=== PATIENT | female | born 1950 | race Caucasian/White ===

== ENCOUNTER 2024-01-01 12:26 | Inpatient (IN) | payer MEDICARE ==
[2024-01-01] VITALS (15 sets, daily range): BP systolic 83–156; BP diastolic 49–88; PULSE 97–110; RESP 15–30; TEMP 98.1–98.3; O2SAT 79–100
[~2024-01-01] VITALS: Ht 172.7 cm; Wt 104.3 kg
[~2024-01-01 12:26] MED LIST: ALENDRONATE SOD10 MG PO; AMLODIPINE BESYL5 MG PO; ASPIRIN81 MG PO; BENZONATATE200 MG PO; BREO ELLIPTA 21 EACH INH; CEPHALEXIN500 MG PO; CLOPIDOGREL75 MG PO; ELIQUIS5 MG PO; IMITREX100 MG PO; LIOTHYRONINE SO5 MCG PO; LIPITOR20 MG PO; LOSARTAN POTASS25 MG PO; MECLIZINE HCL12.5 MG PO; METFORMIN HCL500 MG PO; METOPROLOL SUCC50 MG PO; OMEPRAZOLE40 MG PO; PREDNISONE20 MG PO; PROVENTIL HFA6.7 GM INH; SERTRALINE HCL50 MG PO; ZITHROMAX500 MG PO
[2024-01-01] MEDS ORDERED: SODIUM CHLORIDE FLUSH 10 ML SYR IV PRN (13:00)
[2024-01-01 13:21] LABS: BASOPHILS % 0.7 % (0.0-1.0); EOSINOPHILS # (AUTO) 0.1 (0.0-0.4); EOSINOPHILS % 1.9 % (0.0-6.0); HEMATOCRIT 29.3 % (34.2-44.1); HEMOGLOBIN 7.6 g/dL (12.0-16.0); LYMPHOCYTES # (AUTO) 1.3 (1.0-3.2); LYMPHOCYTES % 23.5 % (18.0-39.1); MEAN CORPUSCULAR HEMOGLOBIN 17.9 pg (28-32); MEAN CORPUSCULAR HGB CONC 25.9 g/dL (31-35); MEAN CORPUSCULAR VOLUME 69.1 fL (81-99); MONOCYTES # (AUTO) 0.4 (0.2-0.8); MONOCYTES % 7.4 % (4.4-11.3); NEUTROPHILS # (AUTO) 3.7 (2.1-6.9); NEUTROPHILS % 66.1 % (38.7-80.0); PLATELET COUNT 357 x10e3/uL (140-360); RED BLOOD COUNT 4.24 x10e6/uL (3.6-5.1); RED CELL DISTRIBUTION WIDTH 18.6 % (11.7-14.4); WHITE BLOOD COUNT 5.66 x10e3/uL (4.8-10.8)
[2024-01-01 13:31] LABS: INR 0.91; PARTIAL THROMBOPLASTIN TIME 22.9 seconds (23.8-35.5); PROTHROMBIN TIME 12.9 seconds (11.9-14.5)
[2024-01-01] MEDS: ALBUTEROL/IPRATROPIUM 3 ML NEB NEB ONE (13:32)
[2024-01-01 13:40] LABS: ALANINE AMINOTRANSFERASE 16 IU/L (0-55); ALBUMIN/GLOBULIN RATIO 1.4 (0.8-2.0); ALKALINE PHOSPHATASE 52 IU/L (40-150); ANION GAP 16.1 mmol/L (8-16); BLOOD UREA NITROGEN 14 mg/dL (7-26); BUN/CREATININE RATIO 15 (6-25); CALCIUM 9.8 mg/dL (8.4-10.2); CARBON DIOXIDE 25 mmol/L (22-29); CHLORIDE 103 mmol/L (98-107); CREATININE, SERUM 0.96 mg/dL (0.57-1.11); EST GLOMERULAR FILTRATION RATE 62 ML/MIN (>=60); GLUCOSE 120 mg/dL (74-118); POTASSIUM 4.1 mmol/L (3.5-5.1); SODIUM 140 mmol/L (136-145); TOTAL PROTEIN 6.8 g/dL (6.5-8.1)
[2024-01-01] MEDS ORDERED: IOPAMIDOL 370 MG/ML 100 ML INFUS..BTL INJ ONE (13:46)
[2024-01-01 13:47] LABS: TROPONIN I < 0.001 ng/mL (0-0.300)
[2024-01-01 13:56] LABS: BILIRUBIN,TOTAL 0.9 mg/dL (0.2-1.2)
[2024-01-01 14:27] LABS: MICROCYTOSIS MODERATE; PLATELET ESTIMATE ADEQUATE; PLATELET MORPHOLOGY COMMENT NORMAL; RBC MORPHOLOGY COMMENT ABNORMAL
[2024-01-01 14:37] LABS: POLYCHROMASIA FEW
[2024-01-01 14:38] LABS: HYPOCHROMASIA MODERATE
[2024-01-01] MEDS: METHYLPREDNISOLONE SOD SUCC 125 MG/2ML VIAL IV ONE (14:47)
[2024-01-01] MEDS: SODIUM CHLORIDE 0.9% 1000ML 1,000 ML IV ONE (14:47)
[2024-01-01] MEDS: LEVOFLOXACIN 750MG/D5W 150ML 150 ML IV SCH (14:48)
[2024-01-01 15:26] LABS: CLARITY,URINE CLEAR (CLEAR); COLOR,URINE YELLOW (YELLOW); PH,URINE 5.5 (5 - 7)
[2024-01-01 15:27] LABS: BACTERIA,URINE FEW /HPF; BILIRUBIN,URINE NEGATIVE (NEGATIVE); EPITHELIAL CELLS,URINE FEW /LPF; GLUCOSE, URINE NEGATIVE (NEGATIVE); KETONES,URINE TRACE (NEGATIVE); LEUKOCYTE ESTERASE ,URINE NEGATIVE (NEGATIVE); MUCUS,URINE MODERATE (RARE); NITRITE,URINE NEGATIVE (NEGATIVE); PROTEIN,URINE DIPSTICK NEGATIVE (NEGATIVE); RBC,URINE 0-5 /HPF (0-5); URINE UROBILINOGEN 0.2 mg/dL (0.2 - 1); WBC,URINE (MAN) 0-5 /HPF (0-5)
[2024-01-01] MEDS ORDERED: METHYLPREDNISOLONE SOD SUCC 125 MG/2ML VIAL IV ONE (16:00)
[2024-01-01] MEDS ORDERED: ALBUTEROL/IPRATROPIUM 3 ML NEB NEB PRN (16:00)
[2024-01-01] MEDS ORDERED: SODIUM CHLORIDE FLUSH 10 ML SYR INJ PRN (16:00)
[2024-01-01] MEDS ORDERED: ONDANSETRON HCL INJ 2MG/ML 2ML 2 MG/ML VIAL IV PRN (16:00)
[2024-01-01 17:40] LABS: FERRITIN 5.68 ng/mL (4.63-204.00)
[2024-01-02] VITALS (12 sets, daily range): BP systolic 128–158; BP diastolic 76–106; PULSE 69–119; RESP 18–24; TEMP 97.8–98.3; O2SAT 95–100
[2024-01-02] MEDS ORDERED: MELATONIN 5 MG TABLET PO PRN
[2024-01-02] MEDS ORDERED: DOCUSATE SODIUM 100 MG CAP PO PRN
[2024-01-02] MEDS ORDERED: ALBUTEROL/IPRATROPIUM 3 ML NEB NEB PRN
[2024-01-02] MEDS ORDERED: ACETAMINOPHEN 325 MG TAB PO PRN
[2024-01-02] MEDS ORDERED: DEXTROSE 50% SYRINGE 50 ML IV PRN
[2024-01-02] MEDS ORDERED: DIPHENHYDRAMINE HCL 25 MG CAP PO PRN
[2024-01-02] MEDS ORDERED: SIMETHICONE 80 MG CHEW PO PRN
[2024-01-02] MEDS ORDERED: CHLORASEPTIC SPRAY 177 ML BTL MM PRN
[2024-01-02] MEDS ORDERED: LIDOCAINE 4% PATCH TP PRN
[2024-01-02] MEDS: CYANOCOBALAMIN INJ 1,000 MCG/ML VIAL IM ONE (00:44)
[2024-01-02 06:52] LABS: BASOPHILS % 0.1 % (0.0-1.0); HEMATOCRIT 29.4 % (34.2-44.1); HEMOGLOBIN 7.6 g/dL (12.0-16.0); LYMPHOCYTES # (AUTO) 1.4 (1.0-3.2); LYMPHOCYTES % 15.8 % (18.0-39.1); MEAN CORPUSCULAR HEMOGLOBIN 18.1 pg (28-32); MEAN CORPUSCULAR HGB CONC 25.9 g/dL (31-35); MEAN CORPUSCULAR VOLUME 69.8 fL (81-99); MONOCYTES # (AUTO) 0.5 (0.2-0.8); MONOCYTES % 5.5 % (4.4-11.3); NEUTROPHILS # (AUTO) 6.6 (2.1-6.9); PLATELET COUNT 352 x10e3/uL (140-360); RED BLOOD COUNT 4.21 x10e6/uL (3.6-5.1); RED CELL DISTRIBUTION WIDTH 18.8 % (11.7-14.4); WHITE BLOOD COUNT 8.52 x10e3/uL (4.8-10.8)
[2024-01-02 07:17] LABS: ALBUMIN 4.1 g/dL (3.5-5.0); ALBUMIN/GLOBULIN RATIO 1.5 (0.8-2.0); BILIRUBIN,TOTAL 0.8 mg/dL (0.2-1.2); CALCIUM 10.1 mg/dL (8.4-10.2); CREATININE, SERUM 0.87 mg/dL (0.57-1.11); TOTAL PROTEIN 6.9 g/dL (6.5-8.1)
[2024-01-02] MEDS: SODIUM CHLORIDE 0.9% 500ML 500 ML IV ONE (08:45)
[2024-01-02] MEDS: METHYLPREDNISOLONE SOD SUCC 40 MG/ML VIAL 1ML IV SCH (08:46)
[2024-01-02] MEDS: CYANOCOBALAMIN INJ 1,000 MCG/ML VIAL IM SCH (08:46)
[2024-01-02] MEDS ORDERED: SODIUM FERRIC GLUCONATE COMPLX 125 MG in SODIUM CHLORIDE 0.9% 100 ML IV SCH (09:00)
[2024-01-02] MEDS: SODIUM FERRIC GLUCONATE COMPLX 125 MG in SODIUM CHLORIDE 0.9% 100 ML IV SCH (10:47)
[2024-01-02 12:52] LABS: PLATELET ESTIMATE ADEQUATE
[2024-01-02 12:54] LABS: POLYCHROMASIA FEW; RBC MORPHOLOGY COMMENT ABNORMAL
[2024-01-02 12:55] LABS: HYPOCHROMASIA MODERATE
[2024-01-02 12:56] LABS: ANISOCYTOSIS MODERATE; MICROCYTOSIS SLIG; PLATELET MORPHOLOGY COMMENT FEW LARGE
[2024-01-02] MEDS: AMIODARONE HCL 150 MG/100 ML BAG IV ONE (12:56)
[2024-01-02] MEDS: AMIODARONE 900MG 500 ML IV SCH (12:57)
[2024-01-02] MEDS ORDERED: METHYLPREDNISOLONE SOD SUCC 125 MG/2ML VIAL IV SCH (16:00)
[2024-01-02] MEDS: LEVOFLOXACIN 750MG/D5W 150ML 150 ML IV SCH (17:01)
[2024-01-03] VITALS (37 sets, daily range): BP systolic 105–156; BP diastolic 46–107; PULSE 60–114; RESP 13–32; TEMP 97.9–98.8; O2SAT 84–100
[2024-01-03 05:48] LABS: BASOPHILS % 0.1 % (0.0-1.0); HEMATOCRIT 24.7 % (34.2-44.1); LYMPHOCYTES # (AUTO) 0.9 (1.0-3.2); LYMPHOCYTES % 7.1 % (18.0-39.1); MEAN CORPUSCULAR HEMOGLOBIN 18.2 pg (28-32); MEAN CORPUSCULAR HGB CONC 26.3 g/dL (31-35); MONOCYTES # (AUTO) 0.5 (0.2-0.8); MONOCYTES % 3.5 % (4.4-11.3); NEUTROPHILS # (AUTO) 11.4 (2.1-6.9); NEUTROPHILS % 87.8 % (38.7-80.0); PLATELET COUNT 349 x10e3/uL (140-360); RED BLOOD COUNT 3.58 x10e6/uL (3.6-5.1); RED CELL DISTRIBUTION WIDTH 18.5 % (11.7-14.4)
[2024-01-03 05:50] LABS: WHITE BLOOD COUNT 12.97 x10e3/uL (4.8-10.8)
[2024-01-03 05:51] LABS: HEMOGLOBIN 6.5 g/dL (12.0-16.0)
[2024-01-03 06:05] LABS: ANION GAP 13.4 mmol/L (8-16); CREATININE, SERUM 0.9 mg/dL (0.57-1.11); POTASSIUM 4.4 mmol/L (3.5-5.1)
[2024-01-03 08:44] LABS: LYMPHOCYTES % (MANUAL) 6 % (19-48); MONOCYTES % (MANUAL) 3 % (3.4-9.0); NEUTROPHILS % (MANUAL) 91 % (40-74); NUCLEATED RED BLOOD CELLS 2; PLATELET ESTIMATE ADEQUATE; PLATELET MORPHOLOGY COMMENT NORMAL; RBC MORPHOLOGY COMMENT ABNORMAL
[2024-01-03 08:45] LABS: ANISOCYTOSIS MODERATE; HYPOCHROMASIA MODERATE; MICROCYTOSIS MODERATE; OVALOCYTES FEW
[2024-01-03] MEDS: SODIUM CHLORIDE 0.9% 250ML 250 ML IV ONE (08:47)
[2024-01-03 15:51] LABS: BASOPHILS % 0.1 % (0.0-1.0); HEMATOCRIT 28.9 % (34.2-44.1); LYMPHOCYTES # (AUTO) 0.9 (1.0-3.2); MEAN CORPUSCULAR HEMOGLOBIN 19.8 pg (28-32); MEAN CORPUSCULAR HGB CONC 27.7 g/dL (31-35); MEAN CORPUSCULAR VOLUME 71.5 fL (81-99); MONOCYTES # (AUTO) 0.7 (0.2-0.8); MONOCYTES % 4.6 % (4.4-11.3); NEUTROPHILS % 87.3 % (38.7-80.0); PLATELET COUNT 370 x10e3/uL (140-360); RED BLOOD COUNT 4.04 x10e6/uL (3.6-5.1); RED CELL DISTRIBUTION WIDTH 20.8 % (11.7-14.4); WHITE BLOOD COUNT 14.92 x10e3/uL (4.8-10.8)
[2024-01-03] MEDS: METOPROLOL TARTRATE 25 MG TAB PO SCH (20:30)
[2024-01-04] VITALS (24 sets, daily range): BP systolic 88–154; BP diastolic 46–130; PULSE 81–103; RESP 15–23; TEMP 97.6; O2SAT 86–100
[2024-01-04 06:53] LABS: BASOPHILS % 0.1 % (0.0-1.0); HEMATOCRIT 29.5 % (34.2-44.1); LYMPHOCYTES # (AUTO) 1.3 (1.0-3.2); LYMPHOCYTES % 9.4 % (18.0-39.1); MEAN CORPUSCULAR HEMOGLOBIN 19.7 pg (28-32); MEAN CORPUSCULAR HGB CONC 27.1 g/dL (31-35); MEAN CORPUSCULAR VOLUME 72.5 fL (81-99); MONOCYTES # (AUTO) 0.7 (0.2-0.8); MONOCYTES % 4.6 % (4.4-11.3); NEUTROPHILS # (AUTO) 11.8 (2.1-6.9); NEUTROPHILS % 82.8 % (38.7-80.0); PLATELET COUNT 307 x10e3/uL (140-360); RED BLOOD COUNT 4.07 x10e6/uL (3.6-5.1); RED CELL DISTRIBUTION WIDTH 21.2 % (11.7-14.4); WHITE BLOOD COUNT 14.22 x10e3/uL (4.8-10.8)
[2024-01-04 06:54] LABS: ANION GAP 14.4 mmol/L (8-16); CREATININE, SERUM 0.91 mg/dL (0.57-1.11); POTASSIUM 4.4 mmol/L (3.5-5.1)
[2024-01-04 08:14] LABS: ANISOCYTOSIS MARKED; HYPOCHROMASIA MODERATE; MICROCYTOSIS MODERATE; OVALOCYTES FEW; PLATELET ESTIMATE ADEQUATE; PLATELET MORPHOLOGY COMMENT NORMAL; RBC MORPHOLOGY COMMENT ABNORMAL
[2024-01-04 08:15] LABS: POLYCHROMASIA FEW
[2024-01-04] MEDS: AMIODARONE HCL 200 MG TAB PO SCH (09:00)
[2024-01-04] MEDS ORDERED: FENTANYL CITRATE/PF 100MCG/2 ML INJ ONE (09:44)
[2024-01-04] MEDS ORDERED: LIDOCAINE HCL 2% LOCAL INJ 5 ML SDV VIAL INJ ONE (13:30)
[2024-01-04] MEDS ORDERED: PROPOFOL IV EMULSION 10 MG/ML 20 ML VIAL ONE (13:30)
[2024-01-04] MEDS ORDERED: ALBUTEROL 90 MCG/ACT INHALER INH ONE (13:30)
[2024-01-04] MEDS ORDERED: BENZOCAINE/TETRACAINE/BUTAMBEN AERO SPRAY 56 GM CAN ONE (16:03)
[2024-01-04] MEDS: ALBUTEROL/IPRATROPIUM 3 ML NEB ONE (19:39)
[2024-01-05] VITALS (20 sets, daily range): BP systolic 109–133; BP diastolic 46–98; PULSE 73–96; RESP 12–20; TEMP 97–98.7; O2SAT 95–100
[2024-01-05 06:19] LABS: BASOPHILS % 0.1 % (0.0-1.0); EOSINOPHILS % 0.4 % (0.0-6.0); HEMATOCRIT 28.4 % (34.2-44.1); LYMPHOCYTES # (AUTO) 1.7 (1.0-3.2); LYMPHOCYTES % 16.5 % (18.0-39.1); MEAN CORPUSCULAR HEMOGLOBIN 19.7 pg (28-32); MEAN CORPUSCULAR HGB CONC 27.1 g/dL (31-35); MEAN CORPUSCULAR VOLUME 72.8 fL (81-99); MONOCYTES # (AUTO) 0.9 (0.2-0.8); MONOCYTES % 8.5 % (4.4-11.3); NEUTROPHILS % 70.2 % (38.7-80.0); PLATELET COUNT 321 x10e3/uL (140-360); RED CELL DISTRIBUTION WIDTH 22.4 % (11.7-14.4); WHITE BLOOD COUNT 9.98 x10e3/uL (4.8-10.8)
[2024-01-05 06:20] LABS: HEMOGLOBIN 7.7 g/dL (12.0-16.0)
[2024-01-05 06:49] LABS: CALCIUM 8.9 mg/dL (8.4-10.2); CREATININE, SERUM 0.87 mg/dL (0.57-1.11)
[2024-01-05] MEDS: PANTOPRAZOLE SOD 40 MG TABEC PO SCH (08:18)
[2024-01-05] MEDS: METHYLPREDNISOLONE SOD SUCC 40 MG/ML VIAL 1ML IV SCH (08:19)
[2024-01-05] MEDS: SODIUM CHLORIDE 0.9% 250ML 250 ML ONE (09:50)
[2024-01-05] MEDS: BENZONATATE 100 MG CAP PO PRN (11:12)
[2024-01-05] MEDS: SODIUM CHLORIDE 0.9% 250ML 250 ML IV ONE (21:00)
[2024-01-05] MEDS: HYDRALAZINE HCL 20 MG/ML VIAL IV PRN (22:50)
[2024-01-06 03:29] VITALS: BP 145/90; PULSE 91; RESP 18; TEMP 97.1; O2SAT 99
[2024-01-06 07:10] VITALS: PULSE 96; RESP 18; O2SAT 94
[2024-01-06 07:22] LABS: ENDOMYSIAL ANTIBODIES, IGA Negative (Negative)
[2024-01-06 07:48] VITALS: BP 134/83; PULSE 91; RESP 20; TEMP 97.9; O2SAT 96
[2024-01-06 07:49] LABS: IMMUNOGLOBULIN A 30 mg/dL (64-422); TISSUE TRANSGLUTAMINASE IGA AB <2 U/mL (0-3)
[2024-01-06 09:56] LABS: HEMATOCRIT 37.2 % (34.2-44.1); HEMOGLOBIN 10.8 g/dL (12.0-16.0)
[2024-01-06 10:21] LABS: ANION GAP 14.3 mmol/L (8-16); CREATININE, SERUM 0.84 mg/dL (0.57-1.11)
[2024-01-06 10:30] LABS: POTASSIUM 3.3 mmol/L (3.5-5.1)
[2024-01-06 12:43] VITALS: BP 130/74; PULSE 98; RESP 18; TEMP 98; O2SAT 98
[2024-01-06 15:48] VITALS: BP 116/90; PULSE 90; RESP 19; TEMP 99; O2SAT 96
[2024-01-06] MEDS: POTASSIUM CHLORIDE 20 MEQ TAB CR PO PRN (18:02)
[2024-01-07] MEDS ORDERED: PREDNISONE 20 MG TAB PO SCH (09:00)
== END 2024-01-06 18:42 | disposition home or self-care (01) | DRG 190 ==
LOC: ER 12:31 → ERHOLD 15:55 → ICU 17:35 → OBSVTOIN 01-03 09:03 → MED/SURG3 01-05 12:13
PROVIDERS: ADMIT Internal Medicine; ATTEND Internal Medicine
PROC: 02HV33Z Insertion of Infusion Device into Superior Vena Cava, Percutaneous Approach (ICD-10-PCS; 2024-01-02)
PROC: 30233N1 Transfusion of Nonautologous Red Blood Cells into Peripheral Vein, Percutaneous Approach (ICD-10-PCS; 2024-01-03)
PROC: 0DB78ZX Excision of Stomach, Pylorus, Via Natural or Artificial Opening Endoscopic, Diagnostic (ICD-10-PCS; 2024-01-04)
PROC: 0DB68ZX Excision of Stomach, Via Natural or Artificial Opening Endoscopic, Diagnostic (ICD-10-PCS; principal; 2024-01-04 16:09)
DX: J44.1 Chronic obstructive pulmonary disease with (acute) exacerbation (principal); J96.01 Acute respiratory failure with hypoxia; J45.901 Unspecified asthma with (acute) exacerbation; N39.0 Urinary tract infection, site not specified; I48.91 Unspecified atrial fibrillation; D50.9 Iron deficiency anemia, unspecified; K44.9 Diaphragmatic hernia without obstruction or gangrene; K29.70 Gastritis, unspecified, without bleeding; E03.9 Hypothyroidism, unspecified; E11.9 Type 2 diabetes mellitus without complications; E66.01 Morbid (severe) obesity due to excess calories; I10 Essential (primary) hypertension; I25.10 Atherosclerotic heart disease of native coronary artery without angina pectoris; Z68.35 Body mass index [BMI] 35.0-35.9, adult; K21.00 Gastro-esophageal reflux disease with esophagitis, without bleeding; E78.5 Hyperlipidemia, unspecified; Z11.52 Encounter for screening for COVID-19; F41.9 Anxiety disorder, unspecified; Z79.01 Long term (current) use of anticoagulants; Z79.02 Long term (current) use of antithrombotics/antiplatelets; Z79.82 Long term (current) use of aspirin; Z79.51 Long term (current) use of inhaled steroids; Z79.84 Long term (current) use of oral hypoglycemic drugs; Z95.810 Presence of automatic (implantable) cardiac defibrillator; Z86.73 Personal history of transient ischemic attack (TIA), and cerebral infarction without residual deficits; Z85.72 Personal history of non-Hodgkin lymphomas; Z88.2 Allergy status to sulfonamides; Z91.030 Bee allergy status; Z87.891 Personal history of nicotine dependence; I49.5 Sick sinus syndrome; E83.42 Hypomagnesemia
CPT/HCPCS: 36415; 36569; 43239; 71045; 71260; 80048; 80053; 81001; 82270; 82607; 82728; 82746; 82784; 82948; 83516; 83540; 83605; 83735; 83880; 84466; 84484; 85014; 85018; 85025; 85045; 85610; 85730; 86256; 86850; 86900; 86920; 87040; 87086; 87186; 87400; 88305; 88312; 88342; 93005; 93306; 94760; 94799; 99252; 99285; G0378; J0360; J0696; J2001; J2470; J2916; J2919; J3420; J7040; J7050; P9016; Q9967; U0002

== ENCOUNTER 2024-06-17 14:42 | Emergency (ER) | payer MEDICARE, OTHER ==
[~2024-06-17] VITALS: Ht 172.7 cm; Wt 108.0 kg
[2024-06-17 15:16] LABS: BASOPHILS % 0.6 % (0.0-1.0); EOSINOPHILS # (AUTO) 0.1 (0.0-0.4); EOSINOPHILS % 1.6 % (0.0-6.0); HEMATOCRIT 40.7 % (34.2-44.1); HEMOGLOBIN 11.9 g/dL (12.0-16.0); LYMPHOCYTES # (AUTO) 1.7 (1.0-3.2); LYMPHOCYTES % 25.8 % (18.0-39.1); MEAN CORPUSCULAR HEMOGLOBIN 24.9 pg (28-32); MEAN CORPUSCULAR HGB CONC 29.2 g/dL (31-35); MEAN CORPUSCULAR VOLUME 85.3 fL (81-99); MONOCYTES # (AUTO) 0.5 (0.2-0.8); MONOCYTES % 8.4 % (4.4-11.3); NEUTROPHILS # (AUTO) 4.1 (2.1-6.9); NEUTROPHILS % 63.3 % (38.7-80.0); PLATELET COUNT 296 x10e3/uL (140-360); RED BLOOD COUNT 4.77 x10e6/uL (3.6-5.1); RED CELL DISTRIBUTION WIDTH 15.7 % (11.7-14.4)
[2024-06-17 15:27] LABS: CORONAVIRUS COVID-19 AG NEGATIVE (NEGATIVE); INFLUENZA A AG NEGATIVE (NEGATIVE); INFLUENZA B AG NEGATIVE (NEGATIVE)
[2024-06-17 15:36] LABS: ALBUMIN 3.9 g/dL (3.5-5.0); ALBUMIN/GLOBULIN RATIO 1.4 (0.8-2.0); ANION GAP 19.2 mmol/L (8-16); BILIRUBIN,TOTAL 0.5 mg/dL (0.2-1.2); CREATININE, SERUM 0.94 mg/dL (0.57-1.11); POTASSIUM 4.2 mmol/L (3.5-5.1); TOTAL PROTEIN 6.6 g/dL (6.5-8.1)
[2024-06-17] MEDS ORDERED: IOPAMIDOL 370 MG/ML 100 ML INFUS..BTL INJ ONE (15:45)
[2024-06-17 16:36] VITALS: PULSE 93; RESP 19
[2024-06-17] MEDS ORDERED: LACTATED RINGER'S 1,000 ML INJ ONE (16:45)
[2024-06-17 16:46] VITALS: BP 142/86; PULSE 92; RESP 18; TEMP 98.2; O2SAT 96
== END 2024-06-17 16:47 | disposition home or self-care (01) ==
LOC: ER 14:50
DX: R06.00 Dyspnea, unspecified (principal); R07.89 Other chest pain; R06.02 Shortness of breath; F41.9 Anxiety disorder, unspecified; I10 Essential (primary) hypertension; I25.10 Atherosclerotic heart disease of native coronary artery without angina pectoris; J44.9 Chronic obstructive pulmonary disease, unspecified; I48.91 Unspecified atrial fibrillation; E78.5 Hyperlipidemia, unspecified; I50.9 Heart failure, unspecified; D64.9 Anemia, unspecified; Z11.52 Encounter for screening for COVID-19; Z86.73 Personal history of transient ischemic attack (TIA), and cerebral infarction without residual deficits; Z95.810 Presence of automatic (implantable) cardiac defibrillator
CPT/HCPCS: 36415; 71260; 80053; 83880; 84484; 85025; 87428; 93005; 99284; J7121; Q9967

== ENCOUNTER 2024-10-23 19:33 | Inpatient (IN) | payer MEDICARE, OTHER ==
[~2024-10-23] VITALS: Ht 172.7 cm; Wt 103.4 kg
[2024-10-23] MEDS: SODIUM CHLORIDE 0.9% 250ML 250 ML IV ONE (02:58)
[2024-10-23 19:33] VITALS: TEMP 98.2
[2024-10-23 20:19] LABS: BASOPHILS % 0.6 % (0.0-1.0); EOSINOPHILS # (AUTO) 0.1 (0.0-0.4); EOSINOPHILS % 2.2 % (0.0-6.0); HEMATOCRIT 26.9 % (34.2-44.1); LYMPHOCYTES # (AUTO) 1.4 (1.0-3.2); LYMPHOCYTES % 26.9 % (18.0-39.1); MEAN CORPUSCULAR HEMOGLOBIN 17.9 pg (28-32); MEAN CORPUSCULAR VOLUME 68.6 fL (81-99); MONOCYTES # (AUTO) 0.5 (0.2-0.8); MONOCYTES % 8.4 % (4.4-11.3); NEUTROPHILS # (AUTO) 3.3 (2.1-6.9); NEUTROPHILS % 61.5 % (38.7-80.0); PLATELET COUNT 325 x10e3/uL (140-360); RED BLOOD COUNT 3.92 x10e6/uL (3.6-5.1); RED CELL DISTRIBUTION WIDTH 18.2 % (11.7-14.4); WHITE BLOOD COUNT 5.35 x10e3/uL (4.8-10.8)
[2024-10-23 20:29] LABS: INR 0.94; PROTHROMBIN TIME 13.2 seconds (11.9-14.5)
[2024-10-23 20:30] LABS: PARTIAL THROMBOPLASTIN TIME 24.5 seconds (23.8-35.5)
[2024-10-23 20:38] LABS: ALBUMIN 3.8 g/dL (3.5-5.0); ALBUMIN/GLOBULIN RATIO 1.7 (0.8-2.0); ANION GAP 13.6 mmol/L (8-16); BILIRUBIN,TOTAL 0.7 mg/dL (0.2-1.2); CALCIUM 9.1 mg/dL (8.4-10.2); CREATININE, SERUM 0.98 mg/dL (0.57-1.11); POTASSIUM 3.6 mmol/L (3.5-5.1); TOTAL PROTEIN 6.1 g/dL (6.5-8.1)
[2024-10-23] MEDS: SODIUM CHLORIDE 0.9% 500ML 500 ML IV ONE (20:43)
[2024-10-23 20:51] LABS: INFLUENZA A AG NEGATIVE (NEGATIVE)
[2024-10-23 20:52] LABS: CORONAVIRUS COVID-19 AG NEGATIVE (NEGATIVE); INFLUENZA B AG NEGATIVE (NEGATIVE)
[2024-10-23 21:24] LABS: PLATELET ESTIMATE ADEQUATE; PLATELET MORPHOLOGY COMMENT NORMAL; RBC MORPHOLOGY COMMENT ABNORMAL
[2024-10-23 21:26] LABS: POLYCHROMASIA FEW
[2024-10-23 21:27] LABS: HYPOCHROMASIA MARKED
[2024-10-23 21:28] LABS: ANISOCYTOSIS SLIGHT; POIKILOCYTOSIS SLIGHT
[2024-10-23] MEDS ORDERED: ONDANSETRON HCL INJ 2MG/ML 2ML 2 MG/ML VIAL IV PRN (23:00)
[2024-10-23 23:25] LABS: BILIRUBIN,URINE SMALL (NEGATIVE); CLARITY,URINE CLEAR (CLEAR); COLOR,URINE YELLOW (YELLOW); GLUCOSE, URINE NEGATIVE (NEGATIVE); KETONES,URINE 1+ (NEGATIVE); LEUKOCYTE ESTERASE ,URINE NEGATIVE (NEGATIVE); NITRITE,URINE NEGATIVE (NEGATIVE); PH,URINE 5.5 (5 - 7); PROTEIN,URINE DIPSTICK TRACE (NEGATIVE); URINE UROBILINOGEN 1 mg/dL (0.2 - 1)
[2024-10-23] MEDS: SODIUM CHLORIDE 0.9% 1000ML 1,000 ML IV SCH (23:35)
[2024-10-23 23:38] LABS: RBC,URINE 0-5 /HPF (0-5)
[2024-10-23 23:39] LABS: BACTERIA,URINE MANY /HPF; EPITHELIAL CELLS,URINE MODERATE /LPF
[2024-10-24] VITALS (10 sets, daily range): BP systolic 109–135; BP diastolic 52–91; PULSE 87–110; RESP 16–20; TEMP 97.6–98.2; O2SAT 96–100
[2024-10-24 02:35] LABS: % IRON SATURATION 3 % (15-50); IRON 15 ug/dL (50-170); TOTAL IRON BINDING CAPACITY 448 ug/dL (261-478); TRANSFERRIN 320 mg/dL (180-382)
[2024-10-24] MEDS: SODIUM CHLORIDE 0.9% 250ML 250 ML ONE (09:13)
[2024-10-24] MEDS ORDERED: METOPROLOL TARTRATE INJ 1 MG/ML VIAL IV PRN (11:00)
[2024-10-24] MEDS ORDERED: IRON SUCROSE 100 MG in SODIUM CHLORIDE 0.9% 100 ML IV SCH (15:00)
[2024-10-24] MEDS: CYANOCOBALAMIN INJ 1,000 MCG/ML VIAL IM ONE (16:12)
[2024-10-24 17:01] LABS: BASOPHILS # (AUTO) 0.1 (0.0-0.1); BASOPHILS % 0.7 % (0.0-1.0); EOSINOPHILS # (AUTO) 0.1 (0.0-0.4); EOSINOPHILS % 1.6 % (0.0-6.0); HEMATOCRIT 32.6 % (34.2-44.1); HEMOGLOBIN 9.5 g/dL (12.0-16.0); LYMPHOCYTES # (AUTO) 1.7 (1.0-3.2); LYMPHOCYTES % 24.4 % (18.0-39.1); MEAN CORPUSCULAR HEMOGLOBIN 20.7 pg (28-32); MEAN CORPUSCULAR HGB CONC 29.1 g/dL (31-35); MEAN CORPUSCULAR VOLUME 70.9 fL (81-99); MONOCYTES # (AUTO) 0.5 (0.2-0.8); MONOCYTES % 6.5 % (4.4-11.3); NEUTROPHILS # (AUTO) 4.6 (2.1-6.9); NEUTROPHILS % 66.5 % (38.7-80.0); PLATELET COUNT 291 x10e3/uL (140-360); RED CELL DISTRIBUTION WIDTH 20.1 % (11.7-14.4); WHITE BLOOD COUNT 6.88 x10e3/uL (4.8-10.8)
[2024-10-24 17:15] LABS: INR 0.94; PROTHROMBIN TIME 13.2 seconds (11.9-14.5)
[2024-10-24 17:16] LABS: PARTIAL THROMBOPLASTIN TIME 24.7 seconds (23.8-35.5)
[2024-10-24 17:25] LABS: ALBUMIN 3.7 g/dL (3.5-5.0); ALBUMIN/GLOBULIN RATIO 1.5 (0.8-2.0); ANION GAP 12.6 mmol/L (8-16); BILIRUBIN,TOTAL 2.3 mg/dL (0.2-1.2); CALCIUM 9.1 mg/dL (8.4-10.2); CREATININE, SERUM 0.89 mg/dL (0.57-1.11); POTASSIUM 3.6 mmol/L (3.5-5.1); TOTAL PROTEIN 6.2 g/dL (6.5-8.1)
[2024-10-24] MEDS ORDERED: MELATONIN 3 MG TAB PO PRN (21:00)
[2024-10-24] MEDS: CYANOCOBALAMIN INJ 1,000 MCG/ML VIAL IM SCH (21:00)
[2024-10-24] MEDS: ATORVASTATIN 20 MG TAB PO SCH (21:26)
[2024-10-24] MEDS: IRON SUCROSE 100 MG in SODIUM CHLORIDE 0.9% 100 ML IV SCH (21:26)
[2024-10-25] VITALS (8 sets, daily range): BP systolic 122–146; BP diastolic 75–96; PULSE 87–113; RESP 18–20; TEMP 97.9–98.4; O2SAT 94–100
[2024-10-25] MEDS: ALBUTEROL/IPRATROPIUM 3 ML NEB NEB PRN (00:15)
[2024-10-25 04:54] LABS: BASOPHILS # (AUTO) 0.1 (0.0-0.1); EOSINOPHILS # (AUTO) 0.1 (0.0-0.4); EOSINOPHILS % 2.6 % (0.0-6.0); HEMATOCRIT 29.7 % (34.2-44.1); HEMOGLOBIN 8.7 g/dL (12.0-16.0); LYMPHOCYTES # (AUTO) 1.4 (1.0-3.2); LYMPHOCYTES % 27.5 % (18.0-39.1); MEAN CORPUSCULAR HGB CONC 29.3 g/dL (31-35); MEAN CORPUSCULAR VOLUME 71.6 fL (81-99); MONOCYTES # (AUTO) 0.5 (0.2-0.8); MONOCYTES % 9.3 % (4.4-11.3); PLATELET COUNT 253 x10e3/uL (140-360); RED BLOOD COUNT 4.15 x10e6/uL (3.6-5.1); RED CELL DISTRIBUTION WIDTH 20.2 % (11.7-14.4); WHITE BLOOD COUNT 5.05 x10e3/uL (4.8-10.8)
[2024-10-25 05:20] LABS: ANION GAP 12.6 mmol/L (8-16); CALCIUM 8.7 mg/dL (8.4-10.2); CREATININE, SERUM 0.81 mg/dL (0.57-1.11); POTASSIUM 3.6 mmol/L (3.5-5.1)
[2024-10-25] MEDS: LIOTHYRONINE SODIUM 5 MCG TAB PO SCH (06:18)
[2024-10-25] MEDS ORDERED: CLOPIDOGREL BISULFATE 75 MG TAB PO SCH (09:00)
[2024-10-25] MEDS ORDERED: CYANOCOBALAMIN INJ 1,000 MCG/ML VIAL IM SCH (09:00)
[2024-10-25] MEDS ORDERED: ASPIRIN 81 MG CHEW TAB PO SCH (09:00)
[2024-10-25] MEDS: AMLODIPINE BESYLATE 5 MG TAB PO SCH (09:35)
[2024-10-25] MEDS: METFORMIN HCL 500 MG TAB PO SCH (09:36)
[2024-10-25] MEDS: SERTRALINE HCL 50 MG TAB PO SCH (09:36)
[2024-10-25] MEDS: MECLIZINE HCL 12.5 MG TAB PO SCH (09:36)
[2024-10-25] MEDS: ACETAMINOPHEN 325 MG TAB PO PRN (21:23)
[2024-10-26] VITALS: BP_SYST 126; BP_SYST 166; BP_DIAS 84; BP_DIAS 95; PULSE 101; PULSE 94; RESP 18; TEMP 98; TEMP 98.1; O2SAT 96
[2024-10-26 06:40] LABS: BASOPHILS % 0.9 % (0.0-1.0); EOSINOPHILS # (AUTO) 0.2 (0.0-0.4); EOSINOPHILS % 3.9 % (0.0-6.0); HEMATOCRIT 28.5 % (34.2-44.1); HEMOGLOBIN 8.1 g/dL (12.0-16.0); LYMPHOCYTES # (AUTO) 0.9 (1.0-3.2); MEAN CORPUSCULAR HEMOGLOBIN 20.7 pg (28-32); MEAN CORPUSCULAR HGB CONC 28.4 g/dL (31-35); MEAN CORPUSCULAR VOLUME 72.7 fL (81-99); MONOCYTES # (AUTO) 0.4 (0.2-0.8); MONOCYTES % 8.8 % (4.4-11.3); NEUTROPHILS # (AUTO) 3.1 (2.1-6.9); NEUTROPHILS % 65.8 % (38.7-80.0); PLATELET COUNT 232 x10e3/uL (140-360); RED BLOOD COUNT 3.92 x10e6/uL (3.6-5.1); RED CELL DISTRIBUTION WIDTH 21.2 % (11.7-14.4); WHITE BLOOD COUNT 4.64 x10e3/uL (4.8-10.8)
[2024-10-26 07:15] LABS: ANION GAP 12.5 mmol/L (8-16); CALCIUM 8.3 mg/dL (8.4-10.2); CREATININE, SERUM 0.82 mg/dL (0.57-1.11); POTASSIUM 3.5 mmol/L (3.5-5.1)
[2024-10-26 07:58] VITALS: PULSE 95; RESP 20; O2SAT 95
[2024-10-26 08:00] VITALS: BP 125/84; PULSE 92; RESP 19; TEMP 97.9; O2SAT 97
[2024-10-26 12:10] VITALS: BP 146/95; PULSE 97; RESP 22; TEMP 98.2; O2SAT 98
[2024-10-26] MEDS ORDERED: PANTOPRAZOLE SO40 MG PO (13:14)
[2024-10-26 16:00] VITALS: BP 146/95; PULSE 97; RESP 22; TEMP 98.2; O2SAT 98
== END 2024-10-26 17:02 | disposition home or self-care (01) | DRG 812 ==
LOC: ER 19:49 → ERHOLD 22:54 → MED/SURG 10-24 00:46 → MED/SURG2 10-24 17:30 → OBSVTOIN 10-25 09:21
PROVIDERS: ADMIT Internal Medicine; ATTEND Internal Medicine
PROC: 30233N1 Transfusion of Nonautologous Red Blood Cells into Peripheral Vein, Percutaneous Approach (ICD-10-PCS; principal; 2024-10-24)
PROC: 02HV33Z Insertion of Infusion Device into Superior Vena Cava, Percutaneous Approach (ICD-10-PCS; 2024-10-24)
DX: D50.9 Iron deficiency anemia, unspecified (principal); N39.0 Urinary tract infection, site not specified; I48.0 Paroxysmal atrial fibrillation; J44.9 Chronic obstructive pulmonary disease, unspecified; E03.9 Hypothyroidism, unspecified; E78.5 Hyperlipidemia, unspecified; E11.9 Type 2 diabetes mellitus without complications; I10 Essential (primary) hypertension; R06.00 Dyspnea, unspecified; F41.9 Anxiety disorder, unspecified; Z11.52 Encounter for screening for COVID-19; Z79.02 Long term (current) use of antithrombotics/antiplatelets; Z79.82 Long term (current) use of aspirin; Z79.890 Hormone replacement therapy; Z79.51 Long term (current) use of inhaled steroids; Z79.84 Long term (current) use of oral hypoglycemic drugs; Z95.810 Presence of automatic (implantable) cardiac defibrillator; Z85.72 Personal history of non-Hodgkin lymphomas; Z86.73 Personal history of transient ischemic attack (TIA), and cerebral infarction without residual deficits; Z88.2 Allergy status to sulfonamides
CPT/HCPCS: 36415; 36569; 71045; 80048; 80053; 81001; 82607; 82746; 82948; 83540; 83605; 84466; 84484; 85025; 85045; 85610; 85730; 86850; 86900; 86920; 87040; 87086; 93005; 94640; 94799; 99252; 99284; G0378; J0696; J1756; J2470; J3420; J7030; J7040; J7050; P9016

== ENCOUNTER 2025-02-09 10:50 | Emergency (ER) | payer MEDICARE ==
[~2025-02-09 10:50] MED LIST changes: +PANTOPRAZOLE SO40 MG PO
[2025-02-09 10:57] VITALS: TEMP 97.9
[2025-02-09 11:38] LABS: BASOPHILS % 0.5 % (0.0-1.0); EOSINOPHILS % 1.6 % (0.0-6.0); LYMPHOCYTES % 20.0 % (18.0-39.1); MONOCYTES % 7.4 % (4.4-11.3); NEUTROPHILS % 70.3 % (38.7-80.0); RED CELL DISTRIBUTION WIDTH 17.1 % (11.7-14.4)
[2025-02-09 12:05] LABS: CORONAVIRUS COVID-19 AG NEGATIVE (NEGATIVE); EST GLOMERULAR FILTRATION RATE 78.0 ML/MIN (>=60)
[2025-02-09] MEDS ORDERED: VENTOLIN HFA18 GM INH (12:43)
[2025-02-09] MEDS ORDERED: PREDNISONE20 MG PO (12:43)
[2025-02-09] MEDS ORDERED: AZITHROMYCIN250 MG PO (12:43)
[2025-02-09 13:15] VITALS: PULSE 92; RESP 22; O2SAT 97
== END 2025-02-09 13:15 | disposition home or self-care (01) ==
LOC: ER 10:54
DX: R06.02 Shortness of breath (principal); J06.9 Acute upper respiratory infection, unspecified; I10 Essential (primary) hypertension; E11.9 Type 2 diabetes mellitus without complications; J44.9 Chronic obstructive pulmonary disease, unspecified; I50.9 Heart failure, unspecified; I48.91 Unspecified atrial fibrillation; I25.10 Atherosclerotic heart disease of native coronary artery without angina pectoris; D64.9 Anemia, unspecified; E78.5 Hyperlipidemia, unspecified; F41.9 Anxiety disorder, unspecified; Z11.52 Encounter for screening for COVID-19; Z86.73 Personal history of transient ischemic attack (TIA), and cerebral infarction without residual deficits; Z95.810 Presence of automatic (implantable) cardiac defibrillator
CPT/HCPCS: 36415; 71045; 80053; 82550; 83690; 83880; 84484; 85025; 93005; 99283